=== PATIENT | female | born 1990 ===

== ENCOUNTER → 2018-09-24 20:55 | Outpatient (REF) | payer OTHER, SELFPAY ==
[2018-09-24 21:28] LABS: HEMOLYSIS < 15 (0-50)
[2018-09-24 21:30] LABS: Add Manual Diff / Slide Review NO; Basophils Percent Auto 0.5 % (0-2); Hematocrit 37.8 % (36-46); Hemoglobin 12.8 g/dL (12.0-16.0); Lymphocytes Percent Auto 30.2 % (25-40); Mean Corpuscular HGB Conc 33.8 % (30-36); Mean Corpuscular Hemoglobin 31.5 PG (26-34); Mean Corpuscular Volume 93.4 fL (80-100); Monocytes Percent Auto 6.6 % (3-14); Neutrophils Absolute Auto 2800 /uL (3000-5900); Neutrophils Percent Auto 60.7 % (50-75); Platelet Count 185 X10^3/uL (150-400); Red Blood Cell Count 4.05 X10^6/uL (4.0-5.2); Red Cell Distribution Width 12.8 % (11.6-14.8); White Blood Cell Count 4.6 X10^3/uL (4.5-11.0)
[2018-09-24 21:34] LABS: Alanine Aminotransferase 20 IU/L (9-52); Albumin 4.1 g/dL (3.5-5.0); Albumin Globulin Ratio 1.7 (1.0-2.8); Alkaline Phosphatase 54 U/L (38-126); Aspartate Aminotransferase 25 IU/L (14-36); BUN Creatinine Ratio 18.6 (6-22); Bilirubin Total 0.5 mg/dL (0.2-1.3); Blood Urea Nitrogen 13 mg/dL (7-17); Calcium 9.2 mg/dL (8.4-10.2); Carbon Dioxide 24 mmol/L (22-32); Chloride 105 mmol/L (98-107); Estimated Glomerular Filt Rate > 60.0 mL/min (>60); Globulin 2.4 g/dL (1.7-4.1); Glucose 84 mg/dL (70-100); Sodium 140 mmol/L (137-145); Total Protein 6.5 g/dL (6.3-8.2)
[2018-09-24 21:50] LABS: Hemoglobin A1C% w Est Avg Glu 4.9 % (4.0-6.0)
[2018-09-25 01:51] LABS: Free T3, Triiodothyronine Free 3.32 pg/mL (2.77-5.27); Free T4, Direct Thyroxine 1.43 ng/dL (0.78-2.19)
[2018-09-25 01:52] LABS: Luteinizing Hormone 0.84 mIU/mL
[2018-09-25 04:51] LABS: Thyroid Stimulating Hormone 1.02 uIU/mL (0.47-4.68)
[2018-09-26 15:00] LABS: Progesterone < 0.5 ng/mL
[2018-09-28 18:40] LABS: Estrogen 143.8 pg/mL
[2018-09-29 11:08] LABS: Testosterone Free 0.5 pg/mL (0.1-6.4); Testosterone Total 16 ng/dL (2-45)
[2018-09-30 16:03] LABS: Triiodothyronine T3 Reverse 19 ng/dL (8-25)
== END ==
LOC: LAB 20:55
PROVIDERS: Visit Provider Physician Assistant
DX: R53.83 Other fatigue (principal); Z13.89 Encounter for screening for other disorder; R63.5 Abnormal weight gain; R68.82 Decreased libido
CPT/HCPCS: 80053; 82672; 82728; 83002; 83036; 83519; 84144; 84402; 84403; 84439; 84443; 84481; 84482; 85025